=== PATIENT | female | born 1995 | race Caucasian/White ===

== ENCOUNTER 2023-11-09 17:22 | Emergency (ER) | payer SELFPAY ==
[~2023-11-09] VITALS: Ht 170.2 cm; Wt 77.1 kg
[2023-11-09] MEDS ORDERED: LIDOcaine HCl 1% (Local Anesth.) 20 ML VIAL STI STA (17:26)
[2023-11-09] MEDS ORDERED: POVIDONE IODINE 0.5 OZ/BTL TOP ONE (17:30)
[2023-11-09] MEDS ORDERED: Diph, Acellular Pertussis, Tet 0.5 ML/VIAL (Tdap) SDV IM ONE (17:30)
[2023-11-09 18:17] LABS: BASO% 0.3 % (0-3); HEMATOCRIT 43.5 % (37.0-47.0); HEMOGLOBIN 14.7 g/dl (12.0-16.0); IMMATURE GRANULOCYTES 0.4 % (0.0-5.0); LYMPH% 29.8 % (15-41); MEAN CELL VOLUME 91.6 fL CALC (80.0-100.0); MEAN CORPUSCULAR HGB 30.9 pG CALC (26.0-32.0); MEAN CORPUSCULAR HGB CONC 33.8 g/dL CAL (32.0-36.0); MONO% 5.7 % (2-13); NEUT# 4.55 thou/uL (2.00-7.15); NEUT% 61.8 % (42-76); RED BLOOD COUNT 4.75 mill/uL (4.20-5.60); RED CELL DISTRI WIDTH 11.3 % (11.5-15.5)
[2023-11-09 18:24] LABS: ALBUMIN 4.5 g/dL (3.2-5.0); ALKALINE PHOSPHATASE 71 u/l (38-126); ANION GAP 12 (6-22 (CALC)); BILIRUBIN, TOTAL 0.5 mg/dL (0.02-1.3); BUN 10 mg/dL (7-17); BUN/CREATININE RATIO 17 (12-20 (CALC)); CARBON DIOXIDE 20 mmol/l (22-30); CHLORIDE 114 mmol/l (95-108); CREATININE 0.6 mg/dL (0.5-1.0); ESTIMATED GFR 124 ML/MIN (>=90 (CALC)); ETHYL ALCOHOL 0 mg/dl (0-30); POTASSIUM 3.6 mmol/l (3.5-5.1); SGOT/AST 55 u/l (14-36); SODIUM 142 mmol/l (137-146); TOTAL PROTEIN 8.2 g/dL (6.3-8.2)
[2023-11-09] MEDS ORDERED: LIDOcaine HCl 1% (Local Anesth.) 20 ML VIAL IM STA (18:33)
[2023-11-09] MEDS ORDERED: CEPHALEXIN500 M1 PO (18:34)
[2023-11-09] MEDS ORDERED: cefTRIAXone SODIUM 1 GM/VIAL SDV IM ONE (18:35)
[2023-11-09 21:56] VITALS: BP 122/79
== END 2023-11-09 21:56 | DRG 605 ==
LOC: ED 17:22
PROVIDERS: Family Medicine
PROC: 0HQEXZZ Repair Left Lower Arm Skin, External Approach (ICD-10-PCS; principal; 2023-11-09)
DX: S61.512A Laceration without foreign body of left wrist, initial encounter (principal); F31.9 Bipolar disorder, unspecified; F20.9 Schizophrenia, unspecified; R82.5 Elevated urine levels of drugs, medicaments and biological substances; X78.8XXA Intentional self-harm by other sharp object, initial encounter; Z91.51 Personal history of suicidal behavior

== ENCOUNTER 2023-11-23 18:04 | Emergency (ER) | payer SELFPAY ==
[~2023-11-23] VITALS: Ht 170.2 cm; Wt 83.4 kg
[~2023-11-23 18:04] MED LIST: CEPHALEXIN500 M1 PO
[2023-11-23 19:02] VITALS: BP 128/85
== END 2023-11-23 19:02 | disposition home or self-care (01) | DRG 950 ==
LOC: ED 18:04
DX: S61.512D Laceration without foreign body of left wrist, subsequent encounter (principal); X58.XXXD Exposure to other specified factors, subsequent encounter; Z72.0 Tobacco use